=== PATIENT | male | born 1935 | race Caucasian/White ===

== ENCOUNTER 2018-12-18 04:32 | Emergency (ER) | payer MEDICARE, MEDICAID ==
[~2018-12-18] VITALS: Ht 162.6 cm; Wt 68.0 kg
--- NOTE | 2018-12-18 04:43 | NUR ---
ED Nurse Note: pt brought in by [facility] from [facility], per EMS report, pt went to [facility] for combative behavior on 12/17/18 and was discharged back to snf, continue to demonstrate same behavior, trying to run away from staff and accidentally tripped and fell. Noted abrasion on forehead, left arm with contusion noted. no active bleeding at this time. PT AA&ox1, gcs=14, skin warm and dry, resp even and unlabored on RA, VSS, will cont monitor. noted pt o2 92%, started on o2 via NC =2L/min, ERMD notified regarding pt's condition.
[2018-12-18] MEDS ORDERED: LATANOPROST 0.7.5 ML OP (04:45)
[2018-12-18] MEDS ORDERED: IPRATROPIU0.2 MG/1 M HHN (04:45)
[2018-12-18] MEDS ORDERED: BENZONATATE200 MG ORAL (04:45)
[2018-12-18] MEDS ORDERED: CELEBREX200 MG ORAL (04:45)
[2018-12-18] MEDS ORDERED: ASPIR 8181 MG ORAL (04:45)
[2018-12-18] MEDS ORDERED: QUETIAPINE FUMA50 MG ORAL (04:45)
[2018-12-18] MEDS ORDERED: ATORVASTATIN CA20 MG ORAL (04:45)
[2018-12-18 04:48] VITALS: BP 120/85
--- NOTE | 2018-12-18 04:48 | Emergency Room Report ---
History of Present Illness General Chief Complaint: Multiple Trauma/Fall Source: Patient Present Illness HPI Is an 83-year-old male who is right-hand dominant. He presents with chewing left shoulder pain. This occur after mechanical fall. He was walking and tripped and landed on his left shoulder. Pain to that area. Worse with movement. Pain is 8 out of 10. No head injury. Did not pass out. Denies any other complaint. Allergies: Coded Allergies: No Known Allergies (Unverified , 12/18/18) Patient History Past Medical History: see triage record, old chart reviewed Past Surgical History: other Pertinent Family History: none Social History: Denies: smoking Immunizations: other Reviewed Nursing Documentation: PMH: Agreed; PSxH: Agreed Nursing Documentation-PMH Past Medical History: No History, Except For Hx COPD: Yes History Of Psychiatric Problem: Yes - SCHIZ Review of Systems Eye: Denies: eye pain, blurred vision ENT: Denies: ear pain, nose congestion, throat swelling Respiratory: Denies: cough, shortness of breath Cardiovascular: Denies: chest pain, palpitations Gastrointestinal: Denies: abdominal pain, diarrhea, nausea, vomiting Musculoskeletal: Reports: joint pain; Denies: back pain Skin: Denies: rash Neurological: Denies: headache, numbness Endocrine: Denies: increased thirst, increased urine Hematologic/Lymphatic: Denies: easy bruising All Other Systems: negative except mentioned in HPI Physical Exam Vital Signs Date Time Temp Pulse Resp B/P (MAP) Pulse Ox O2 Delivery O2 Flow Rate FiO2 12/18/18 04:29 97.2 94 12 102/69 96 vitals normal Sp02 EP Interpretation: reviewed, normal General Appearance: well appearing, no apparent distress, alert Head: normocephalic, atraumatic Eyes: bilateral eye PERRL, bilateral eye EOMI ENT: hearing grossly normal, normal pharynx Neck: full range of motion, supple, no meningismus Respiratory: chest non-tender, lungs clear, normal breath sounds Cardiovascular #1: regular rate, rhythm, no murmur Gastrointestinal: normal bowel sounds, non tender, no mass, no organomegaly, no bruit, non-distended Musculoskeletal: back normal, gait/station normal, tender - over left shoulder Neurologic: alert, oriented x3 Psychiatric: mood/affect normal Skin: warm/dry Procedures Splinting Splinting : Consent: Verbal Location: left shoulder Pre-Made Type: Pre-Proc Neuro Vasc Exam: normal Post-Proc Neuro Vasc Exam: normal Patient Tolerated: Well Complications: None Medical Decision Making Diagnostic Impression: Primary Impression: Contusion of left shoulder or upper extremity ER Course Is present with a fall and left shoulder pain. No fracture dislocation. Patient given a sling will be discharged back to alf. If symptoms continue he may need an MRI to look for ligament or tendon injury. Other X-Ray Diagnostic Results Other X-Ray Diagnostic Results : X-Ray ordered: Left shoulder x-rays # of Views/Limited Vs Complete: 4 View Indication: Pain EP Interpretation: Yes Interpretation: no dislocation, no soft tissue swelling, no fractures Impression: No acute disease Electronically Signed by: Jack Hatfield MD Last Vital Signs Date Time Temp Pulse Resp B/P (MAP) Pulse Ox O2 Delivery O2 Flow Rate FiO2 12/18/18 04:29 97.2 94 12 102/69 96 Status: improved Disposition: XFER SNF Condition: Stable Scripts Acetaminophen With Codeine (T#3) (TYLENOL #3 TAB*) Y Tab 1 TAB ORAL Q8H PRN for For Pain, #20 TAB Prov: Jack Hatfield MD 12/18/18 Additional Instructions: Follow-up with your doctor in 7 days. May need an MRI if not better. Return if worse. Jack Hatfield MD December 18, 2018 04:48
[2018-12-18] MEDS ORDERED: Tylenol #3 tab (300mg/30mg) ORAL ONE (05:00)
[2018-12-18] MEDS ORDERED: ACETAMINOPHEN-1 EAC1 ORAL (05:20)
--- NOTE | 2018-12-18 06:14 | NUR ---
ED Nurse Note: pt cleared to be d/c per ERMD, ambulace for transport at the bedside, pt vss, resp even and unlabored on o2=2L via nc, dischare and aftercare instruction w/ prescription given to EMT, called nora mclean to give report, spoke with Teresa, caregiver, regarding pt's disharge instruction. pt left w/ all belongings, care endorsed to EMT ambulance personnel.
[2018-12-18 06:18] VITALS: BP 116/82
--- NOTE | 2018-12-18 11:42 | Diagnostic Imaging Report ---
Indication: Trauma Technique: 3 views of the left shoulder Comparison: none Findings: No acute fractures. No dislocations. The joint spaces are preserved Impression: Negative
== END 2018-12-18 06:18 ==
LOC: EDBD 04:32 → EMR 05:04
DX: S40.012A Contusion of left shoulder, initial encounter (principal); W01.0XXA Fall on same level from slipping, tripping and stumbling without subsequent striking against object, initial encounter; Y92.89 Other specified places as the place of occurrence of the external cause; J44.9 Chronic obstructive pulmonary disease, unspecified; F20.9 Schizophrenia, unspecified
CPT/HCPCS: 29105; 99283